=== PATIENT | female | born 1960 | race Caucasian/White ===

== ENCOUNTER → 2017-12-11 | Outpatient (CLI) | payer OTHER ==
[~2017-12-11] MED LIST: ALLO100 PO; ALLO300 PO; ATEN25; ATEN50 PO; COLCRYS; ESOM20; ESTMED1.5T PO; FISH1000 PO; FURO40 PO; HYDACE5 PO; HYDACE5325 PO; HYDCHL12.5; HYDCHL25 PO; INDO50 PO; Janumet 50-1,01 EACH; LEVSOD100 PO; LEVSOD125; LEVSOD175 PO; LIOT25; LIOT25 PO; LISI20; LISI20 PO; METF500; METF500 PO; NAPR500 PO; NAPR500ERA; POTA10T PO; POTCHL10ER PO; PRAV20 PO; Zithromax250 MG PO; [UNRECOGNIZED DRUG - OTHER]
[2017-12-11 18:17] LABS: BASOPHILS ABSOLUTE AUTO 0.04 K/mm3 (0.00-0.23); BASOPHILS PERCENT AUTO 1 % (0-2); EOSINOPHILS PERCENT AUTO 8 % (0-6); Hematocrit 34.6 % (33.0-51.0); Hemoglobin 11.6 g/dL (11.5-16.0); IMMATURE GRAN ABSOLUTE AUTO 0.02 K/mm3 (0.00-0.10); IMMATURE GRAN PERCENT AUTO 0 % (0-1); LYMPHOCYTES PERCENT AUTO 23 % (21-46); MONOCYTES PERCENT AUTO 6 % (4-13); Mean Corpuscular HGB Conc 33.5 g/dL (31.5-36.5); Mean Corpuscular Volume 96 fL (80-100); Mean Platelet Volume 9.9 fL (9.1-12.4); NEUTROPHILS ABSOLUTE AUTO 3.25 K/mm3 (1.96-9.15); NEUTROPHILS PERCENT AUTO 62 % (41-73); Platelet Count 258 K/mm3 (150-400); RDW Coefficient Variation 13.6 % (11.7-14.2); RDW Standard Deviation 47.8 fL (35.1-46.3); Red Blood Cell Count 3.62 M/mm3 (3.80-5.20); White Blood Cell Count 5.21 K/mm3 (4.00-11.30)
[2017-12-11 18:24] LABS: Bun/Creatinine Ratio 19.5 (12.0-20.0); Calcium, Blood 9.3 mg/dL (8.5-10.1); Creatinine, Blood 1.23 mg/dL (0.40-1.00); Potassium, Blood 5.1 mmol/L (3.5-5.5)
== END ==
LOC: LAB EV 18:11 → LAB SHORT 18:11
PROVIDERS: Physician Assistant Surgical
DX: R73.9 Hyperglycemia, unspecified (principal)
CPT/HCPCS: 80048; 85025

== ENCOUNTER 2018-01-03 18:13 | Emergency (ER) | payer OTHER ==
[~2018-01-03] VITALS: Ht 152.4 cm; Wt 115.2 kg
[2018-01-03 21:18] LABS: Bun/Creatinine Ratio 44.6 (12.0-20.0); Calcium, Blood 9.6 mg/dL (8.5-10.1); Creatinine, Blood 1.01 mg/dL (0.40-1.00)
[2018-01-03 22:55] LABS: Calcium, Ionized (POC) 1.24 mmol/L (1.10-1.46); Chloride (POC) 115 mmol/L (98-108); Creatinine (POC) 0.9 mg/dL (0.6-1.0); Glucose (ISTAT POC) 133 mg/dL (70-99); Hemoglobin (POC) 9.5 g/dL (12.0-16.0); Potassium (POC) 5.1 mmol/L (3.5-5.5); Sodium (POC) 140 mmol/L (135-148); Total CO2 (POC) 16 mmol/L (21-32)
== END 2018-01-03 23:21 | disposition home or self-care (01) ==
LOC: ER 18:13
PROVIDERS: Emergency Medicine; Physician Assistant
DX: E87.5 Hyperkalemia (principal); N17.9 Acute kidney failure, unspecified; E86.0 Dehydration; K52.9 Noninfective gastroenteritis and colitis, unspecified; Z79.899 Other long term (current) drug therapy; I10 Essential (primary) hypertension; E11.9 Type 2 diabetes mellitus without complications; E78.00 Pure hypercholesterolemia, unspecified; E03.9 Hypothyroidism, unspecified; Z87.891 Personal history of nicotine dependence
CPT/HCPCS: 36415; 80047; 80048; 85014; 93005; 93010; J7030

== ENCOUNTER → 2018-01-03 | Outpatient (CLI) | payer OTHER ==
[2018-01-03 17:09] LABS: BASOPHILS ABSOLUTE AUTO 0.04 K/mm3 (0.00-0.23); BASOPHILS PERCENT AUTO 1 % (0-2); EOSINOPHILS ABSOLUTE AUTO 0.32 K/mm3 (0.00-0.68); EOSINOPHILS PERCENT AUTO 6 % (0-6); Hematocrit 34.2 % (33.0-51.0); Hemoglobin 11.3 g/dL (11.5-16.0); IMMATURE GRAN ABSOLUTE AUTO 0.02 K/mm3 (0.00-0.10); IMMATURE GRAN PERCENT AUTO 0 % (0-1); LYMPHOCYTES ABSOLUTE AUTO 1.33 K/mm3 (0.84-5.20); LYMPHOCYTES PERCENT AUTO 23 % (21-46); MONOCYTES ABSOLUTE AUTO 0.43 K/mm3 (0.16-1.47); MONOCYTES PERCENT AUTO 7 % (4-13); Mean Corpuscular HGB 32.1 pg (26.0-34.0); Mean Corpuscular Volume 97 fL (80-100); Mean Platelet Volume 9.6 fL (9.1-12.4); NEUTROPHILS ABSOLUTE AUTO 3.73 K/mm3 (1.96-9.15); NEUTROPHILS PERCENT AUTO 64 % (41-73); Platelet Count 233 K/mm3 (150-400); RDW Standard Deviation 48.9 fL (35.1-46.3); Red Blood Cell Count 3.52 M/mm3 (3.80-5.20); White Blood Cell Count 5.87 K/mm3 (4.00-11.30)
[2018-01-03 17:31] LABS: Albumin, Blood 3.7 g/dL (3.4-5.0); Albumin/Globulin Ratio 0.8 (0.8-1.8); Bilirubin, Total 0.3 mg/dL (0.1-1.0); Bun/Creatinine Ratio 37.8 (12.0-20.0); Calcium, Blood 9.8 mg/dL (8.5-10.1); Creatinine, Blood 1.35 mg/dL (0.40-1.00); Globulin, Blood 4.5 g/dL (2.2-4.0); Thyroid Stimulating Hormone 1.981 uIU/mL (0.360-4.800); Total Protein, Blood 8.2 g/dL (6.4-8.2)
[2018-01-03 17:32] LABS: Potassium, Blood 6.1 mmol/L (3.5-5.5)
== END ==
LOC: LAB EV 17:05 → LAB SHORT 17:05
PROVIDERS: Physician Assistant
DX: R19.7 Diarrhea, unspecified (principal)
CPT/HCPCS: 80053; 84443; 85025

== ENCOUNTER → 2018-02-08 | Outpatient (CLI) | payer OTHER ==
[2018-02-08 17:46] LABS: Alanine Aminotransfer (ALT/SGP 44 U/L (12-78); Albumin, Blood 3.7 g/dL (3.4-5.0); Albumin/Globulin Ratio 0.8 (0.8-1.8); Alk Phos 113 U/L (50-136); Anion Gap 12 mmol/L (6-16); Aspartate Aminotrans (AST/SGOT 29 U/L (12-37); Bilirubin, Total 0.2 mg/dL (0.1-1.0); Blood Urea Nitrogen 24 mg/dL (8-24); Bun/Creatinine Ratio 28.2 (12.0-20.0); CHOL/HDL RATIO 5.4; CO2, Blood 20 mmol/L (21-32); Calcium, Blood 9.8 mg/dL (8.5-10.1); Chloride, Blood 106 mmol/L (98-108); Cholesterol 242 mg/dL (50-200); Creatinine, Blood 0.85 mg/dL (0.40-1.00); Globulin, Blood 4.4 g/dL (2.2-4.0); Glomerular Filtration Rate >60 (60-); Glucose, Blood 244 mg/dL (70-99); HDL Cholesterol 45 mg/dL (>39); LDL/HDL RATIO Unable to Calculate; Low Density Lipoprotein Chol Unable to Calculate mg/dL (0-110); Potassium, Blood 5.5 mmol/L (3.5-5.5); Sodium, Blood 138 mmol/L (136-145); Total Protein, Blood 8.1 g/dL (6.4-8.2); Triglycerides 429 mg/dL (30-160); Very Low Density Lipoprot Chol Unable to Calculate mg/dL (6-32)
== END ==
LOC: OLS 15:27 → LAB SHORT 15:27
PROVIDERS: Physician Assistant
DX: E11.65 Type 2 diabetes mellitus with hyperglycemia (principal); E78.5 Hyperlipidemia, unspecified
CPT/HCPCS: 36415; 80053; 80061; 82043; 83036

== ENCOUNTER → 2019-09-04 | Outpatient (CLI) | payer OTHER | END | disposition home or self-care (01) | LOC: LAB EV 17:20 → LAB SHORT 17:20 | DX: N39.0 Urinary tract infection, site not specified (principal) | CPT/HCPCS: 87077; 87086; 87186 ==

== ENCOUNTER 2019-11-10 18:16 | Inpatient (IN) | payer OTHER ==
[~2019-11-10] VITALS: Ht 152.4 cm; Wt 104.3 kg
[~2019-11-10 18:16] MED LIST changes: -ACET325 PO; -ADMELOG SO100 UNIT/1 SC; -AMOCLA875 PO; -BASAGLAR K100 UNIT/2 SC; -Crestor20 MG PO; -DOCU100 PO; -Fish Oil 10001000 MG PO; -Florastor250 MG PO; -HYDR1TAB94 PO; -LISI20 PO; -Metformin HCl1000 MG PO; -ONDA4ODT MM; -PANT20 PO; -POLYETHYLENE G500 G1 PO; -SYNTHROID175 MCG PO
[2019-11-10] MEDS ORDERED: ADMELOG SO100 UNIT/1 SC (21:20)
[2019-11-10] MEDS ORDERED: BASAGLAR K100 UNIT/2 SC (21:21)
[2019-11-10] MEDS ORDERED: LISI20 PO (21:22)
[2019-11-10] MEDS ORDERED: SYNTHROID175 MCG PO (21:22)
[2019-11-10] MEDS ORDERED: Metformin HCl1000 MG PO (21:23)
[2019-11-10] MEDS ORDERED: Crestor20 MG PO (21:24)
[2019-11-10] MEDS ORDERED: Fish Oil 10001000 MG PO (22:30)
--- NOTE | 2019-11-11 02:01 | NUR ---
0030 PT ADMITTED TO ROOM 311 PER CART FROM ER; PT LAST ATE ON 11/09/19 AND VOICING CONCERNS SHE IS HUNGRY AND THIS NURSE ADVISED HER THAT SHE IS NPO 11/11/19 FOR POSSIBLE SURGERY IN AM ([place], DRYWALL TAPER) CLARIFIED THAT PATIENT IS ON SURGICAL SCHEDULE.
--- NOTE | 2019-11-11 04:34 | NUR ---
SHIFT SUMMARY: 59 Y/O OBESE FEMALE RESTED COMFORTABLY ALL SHIFT; NPO FOR POSSIBLE SURGERY THIS AM; DENIES NEED FOR PAIN MEDS; NAUSEA X 1 WITH ZOFRAN 4MG IVP GIVEN WITH RELIEF FELT; PT LAST ATE OR DRANK ON 11/09/19; BED LOW POSITION WITH CALL LIGHT AT SIDE.
[2019-11-11 05:18] LABS: BASOPHILS ABSOLUTE AUTO 0.03 K/mm3 (0.00-0.23); BASOPHILS PERCENT AUTO 0 % (0-2); EOSINOPHILS ABSOLUTE AUTO 0.03 K/mm3 (0.00-0.68); EOSINOPHILS PERCENT AUTO 0 % (0-6); Hematocrit 32.6 % (33.0-51.0); Hemoglobin 10.8 g/dL (11.5-16.0); IMMATURE GRAN ABSOLUTE AUTO 0.06 K/mm3 (0.00-0.10); IMMATURE GRAN PERCENT AUTO 1 % (0-1); LYMPHOCYTES ABSOLUTE AUTO 1.29 K/mm3 (0.84-5.20); LYMPHOCYTES PERCENT AUTO 12 % (21-46); MONOCYTES ABSOLUTE AUTO 0.79 K/mm3 (0.16-1.47); MONOCYTES PERCENT AUTO 7 % (4-13); Mean Corpuscular HGB 30.7 pg (26.0-34.0); Mean Corpuscular HGB Conc 33.1 g/dL (31.5-36.5); Mean Corpuscular Volume 93 fL (80-100); Mean Platelet Volume 10.5 fL (9.1-12.4); NEUTROPHILS ABSOLUTE AUTO 8.62 K/mm3 (1.96-9.15); NEUTROPHILS PERCENT AUTO 80 % (41-73); Platelet Count 223 K/mm3 (150-400); RDW Coefficient Variation 12.3 % (11.7-14.2); RDW Standard Deviation 41.6 fL (35.1-46.3); Red Blood Cell Count 3.52 M/mm3 (3.80-5.20); White Blood Cell Count 10.82 K/mm3 (4.00-11.30)
[2019-11-11 05:29] LABS: Anion Gap 10 mmol/L (6-16); Blood Urea Nitrogen 15 mg/dL (8-24); CO2, Blood 24 mmol/L (21-32); Calcium, Blood 9.1 mg/dL (8.5-10.1); Chloride, Blood 102 mmol/L (98-108); Creatinine, Blood 0.83 mg/dL (0.40-1.00); Glomerular Filtration Rate >60 (60-); Glucose, Blood 220 mg/dL (70-99); Potassium, Blood 4.1 mmol/L (3.5-5.5); Sodium, Blood 136 mmol/L (136-145)
--- NOTE | 2019-11-11 08:28 | NUR ---
PATIENT TO OR FOR APPENDECTOMY. BELONGINGS TAKEN TO ROOM 226.
--- NOTE | 2019-11-11 09:27 | NUR ---
"DAY SURGERY RN | TO OR BOTH DOCTORS AND QUALITY ASSURANCE MONITOR BODY HAVE SEEN PATIENT. REPORT TO AUGIE MORALES. TO BATHROOM PRIOR TO SURGERY."
--- NOTE | 2019-11-11 09:45 | NUR ---
11/11/19 0945 Sindhu Macdonald PT ON SCHEDULED ANTIBIOTICS
--- NOTE | 2019-11-11 13:25 | NUR ---
PATIENT ARRIVED TO ROOM VIA GURNEY FROM PACU. AWAKE. SLOWLY SELF TRANSFERS TO BED. STATES SOME NAUSEA IN PACU, NOW RESOLVED. STATES PAIN IS 'OK RIGHT NOW.' THREE 2X2 DRESSINGS TO ABD, D&I. MARCUS DRAIN WITH SCANT SS DRAINAGE AND SCANT SS DRAINAGE ON DRESSING. VSS. LS CLEAR. SAT 97% ON 2L O2 NC. RESP E/U. HRR. TELE PLACED. SR @ 67 PER MARINA IN PCU. HX OF BACK PAIN, K PAD ADMIN. PAS IN PLACE. CALL LIGHT IN REACH. CONT TO MONITOR.
--- NOTE | 2019-11-11 19:10 | NUR ---
PATIENT NOW SLEEPING. VSS. UP TO BR X 1 SINCE ADMIT TO ROOM, VOIDED. TOLERATED PO. IVF INFUSING PER ORDER. REPORT TO MARY MORALES.
[2019-11-12 04:52] LABS: BASOPHILS ABSOLUTE AUTO 0.03 K/mm3 (0.00-0.23); BASOPHILS PERCENT AUTO 0 % (0-2); EOSINOPHILS ABSOLUTE AUTO 0.01 K/mm3 (0.00-0.68); EOSINOPHILS PERCENT AUTO 0 % (0-6); Hematocrit 33.3 % (33.0-51.0); Hemoglobin 10.5 g/dL (11.5-16.0); IMMATURE GRAN ABSOLUTE AUTO 0.02 K/mm3 (0.00-0.10); IMMATURE GRAN PERCENT AUTO 0 % (0-1); LYMPHOCYTES ABSOLUTE AUTO 1.33 K/mm3 (0.84-5.20); LYMPHOCYTES PERCENT AUTO 16 % (21-46); MONOCYTES ABSOLUTE AUTO 0.65 K/mm3 (0.16-1.47); MONOCYTES PERCENT AUTO 8 % (4-13); Mean Corpuscular HGB 30.8 pg (26.0-34.0); Mean Corpuscular HGB Conc 31.5 g/dL (31.5-36.5); Mean Corpuscular Volume 98 fL (80-100); Mean Platelet Volume 10.3 fL (9.1-12.4); NEUTROPHILS ABSOLUTE AUTO 6.42 K/mm3 (1.96-9.15); NEUTROPHILS PERCENT AUTO 76 % (41-73); Platelet Count 206 K/mm3 (150-400); RDW Coefficient Variation 12.4 % (11.7-14.2); RDW Standard Deviation 44.4 fL (35.1-46.3); Red Blood Cell Count 3.41 M/mm3 (3.80-5.20); White Blood Cell Count 8.46 K/mm3 (4.00-11.30)
[2019-11-12 05:07] LABS: Bun/Creatinine Ratio 18.8 (12.0-20.0); Calcium, Blood 8.6 mg/dL (8.5-10.1); Creatinine, Blood 1.12 mg/dL (0.40-1.00); Potassium, Blood 4.8 mmol/L (3.5-5.5)
--- NOTE | 2019-11-12 06:46 | NUR ---
SUMMARY PT WITH SATS 89-90% R/A WHILE ASLEEP ON BACK.HOWEVER, SATS MID 90'S WHILE RESTING ON SIDES OR OOB/SITTING ON EDGE OF BED. ONLY PLACED O2 2L FOR LESS THAN 30 MIN UNTIL REPOSITIONED AND OOB.DENIES ANY SOB TONIGHT. AMBULATING FOR VOIDING WITHOUT DIFF. CONTINUES WITH MODERATE OUTPUT PER MARCUS,BUT VBA PROGRAMMER IN COLOR TO SERO-SANG WITHOUT ANY CLOTS.PT TOLERATING PO FLUIDS WITHOUT ANY C/O NAUSEA. NOT REQUIRING ANY PAIN MEDS. ANXIOUS TO GO HOME.
--- NOTE | 2019-11-12 19:27 | NUR ---
OOB TO RECLINER CHAIR MOST OF THE DAY, AMBULATED DOWN THE HALLS AND IN ROOM TODAY, REPORTS PASSING FLATUS, TOLERATING REGULAR DIET WELL, MARCUS DRAINING LIGHT SEROUSANGUINOUS DRAINAGE, DSG C/D/I, NO ACUTE CHANGES THIS SHIFT.
[2019-11-13 02:04] LABS: BASOPHILS ABSOLUTE AUTO 0.03 K/mm3 (0.00-0.23); BASOPHILS PERCENT AUTO 0 % (0-2); EOSINOPHILS ABSOLUTE AUTO 0.14 K/mm3 (0.00-0.68); EOSINOPHILS PERCENT AUTO 2 % (0-6); Hematocrit 31.3 % (33.0-51.0); Hemoglobin 10.3 g/dL (11.5-16.0); IMMATURE GRAN ABSOLUTE AUTO 0.08 K/mm3 (0.00-0.10); IMMATURE GRAN PERCENT AUTO 1 % (0-1); LYMPHOCYTES ABSOLUTE AUTO 1.29 K/mm3 (0.84-5.20); LYMPHOCYTES PERCENT AUTO 14 % (21-46); MONOCYTES ABSOLUTE AUTO 0.85 K/mm3 (0.16-1.47); MONOCYTES PERCENT AUTO 9 % (4-13); Mean Corpuscular HGB 31.2 pg (26.0-34.0); Mean Corpuscular HGB Conc 32.9 g/dL (31.5-36.5); Mean Corpuscular Volume 95 fL (80-100); Mean Platelet Volume 9.7 fL (9.1-12.4); NEUTROPHILS ABSOLUTE AUTO 6.89 K/mm3 (1.96-9.15); NEUTROPHILS PERCENT AUTO 74 % (41-73); Platelet Count 241 K/mm3 (150-400); RDW Coefficient Variation 12.3 % (11.7-14.2); RDW Standard Deviation 43.3 fL (35.1-46.3); White Blood Cell Count 9.28 K/mm3 (4.00-11.30)
[2019-11-13 02:19] LABS: Bun/Creatinine Ratio 12.9 (12.0-20.0); Calcium, Blood 7.9 mg/dL (8.5-10.1); Creatinine, Blood 2.17 mg/dL (0.40-1.00); Potassium, Blood 4.2 mmol/L (3.5-5.5)
--- NOTE | 2019-11-13 02:38 | NUR ---
PT WITH INCREASED ABD DISTENSION. REPORTS PASSING FLATUS. VOID ONLY 200 ML SO FAR THIS SHIFT. I CALLED LAB TO MOVE AM DRAW UP TO THIS TIME PRIOR TO CALLING DOCTOR.BLADDER SCAN 21 PER CUSTOM FURRIER. I CALLED DR SHAW AND ADVISED OF ABOVE INCLUDING LABS CREATININE 2.17,GFR 25,NA 131. DR SHAW REVIEWING CHART AND WILL BE IN CONTACT FURTHER.NOTIFIED NURSING TOOL MAINTENANCE WORKER Felicia KATZ.
[2019-11-13 04:12] LABS: Source, Urine Clean Catch
[2019-11-13 04:14] LABS: Bilirubin, Urine Neg (Neg); Blood, Urine Neg (Neg); Glucose Qualitative, Urine Neg (Neg); Ketones, Urine Neg (Neg); Leukocyte Esterase, Urine 1+ (Neg); Nitrite, Urine Neg (Neg); Protein, Urine 2+ (Neg); Specific Gravity, Urine 1.015 (1.003-1.022); Urobilinogen, Urine NORM (Normal)
[2019-11-13 04:23] LABS: Appearance, Urine Hazy (Clear); Color, Urine Yellow (P-Yellow)
[2019-11-13 04:24] LABS: Amorphous Mod (0-Heavy); Bacteria Many /hpf; Red Blood Cells, Urine Not Seen /hpf (0-2); Squamous Epithelial Cells Mod /hpf (Few)
--- NOTE | 2019-11-13 06:19 | NUR ---
SUMMARY PT IV DIFF LOCATION AND CONTINUES TO ALARM OCCLUSION.APPEARS UP AGAINST VALVE, BUT WITH TRACTION, ONLY RUNS FEW MIN THEN ALARMS AGAIN. PT WITH MINIMAL OPTIONS FOR SITES. UNIT STAFF ATTEMPTED WITH ULTRASOUND AND UNABLE TO OBTAIN SITE. THEY RECOMMEND POWER GLIDE WHEN STAFF ABLE TO PLACE.
--- NOTE | 2019-11-13 06:29 | NUR ---
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 I PLACED SOCIAL SERVICE CX.
--- NOTE | 2019-11-13 17:57 | NUR ---
SHIFT SUMMARY: PATIENT HAS BEEN MAINLY IN HER RECLINER TODAY. SHE HAS AMBULATED DOWN THE HALLS TWICE TODAY WITH A HEARING IMPAIRED TEACHER FOLLOWING HER. SHE REPORTS PASSING FLATUS AND HAS BEEN USING THE TOILET TO TRY AND HAVE A BM ALL DAY. MARCUS DRAIN WAS TAKEN OUT TODAY BY DR. CASTLE. THE BANAGE AND GAUZE ARE D/C/I. SHE HAS EATEN ADEQUATELY THROUGHOUT THE SHIFT. SHE IS ABLE TO REPOSITION HERSELF IN THE RECLINER AND BED. SHE ALSO HAS BEEN NAPPING THROUGHOUT THE DAY TOO. WILL CONTINUE TO MONITOR PATIENT UNTIL THE NEXT SHIFT RN IS HERE TO BE GIVEN REPORT.
--- NOTE | 2019-11-13 18:45 | NUR ---
CORE CUTTER AND REAMER DOCUMENTATION HAS BEEN REVIEWED. THIS RN AGREES WITH DOCUMENTATION BY ANA VAUGHN STUDENT NURSE.
--- NOTE | 2019-11-14 04:37 | NUR ---
SHIFT SUMMARY AA0X4, VSS. POD 3 LAP APPY. PT REPORTS PAIN MUCH BETTER TODAY. MEDICATED PER EMAR. UP IN CHAIR. PT AMBULATING TO RESTROOM WITH MINIMAL ASSIST. CONT OF BLADDER. PT REPORTING SOME GAS PAIN, DENIES PASSING GAS. IV FLUIDS INFUSING T/O SHIFT. LAP SITES CDI. MARCUS DRAIN SITE CDI.
[2019-11-14 06:42] LABS: Bun/Creatinine Ratio 13.1 (12.0-20.0); Calcium, Blood 7.4 mg/dL (8.5-10.1); Creatinine, Blood 2.36 mg/dL (0.40-1.00); Potassium, Blood 4.3 mmol/L (3.5-5.5)
[2019-11-14] MEDS ORDERED: HYDR1TAB94 PO (08:53)
--- NOTE | 2019-11-14 09:28 | NUR ---
DR CRANE HERE TO SEE PT.
[2019-11-14] MEDS ORDERED: DOCU100 PO (13:59)
[2019-11-14] MEDS ORDERED: POLYETHYLENE G500 G1 PO (13:59)
[2019-11-14] MEDS ORDERED: AMOCLA875 PO (14:06)
[2019-11-14] MEDS ORDERED: ACET325 PO (14:27)
[2019-11-14] MEDS ORDERED: ONDA4ODT MM (14:31)
[2019-11-14] MEDS ORDERED: PANT20 PO (14:32)
[2019-11-14] MEDS ORDERED: Florastor250 MG PO (14:33)
--- NOTE | 2019-11-14 15:38 | NUR ---
DISCHARGE: PT EATING AND DRINKING, VOIDING, PASSING GAS. PT UP WITH STEADY GAIT TODAY. PT REPORTS UNDERSTANDING OF DISCHARGE INSTRUCTIONS. PT MEDICATIONS CALLED TO [facility] PER PT REQ. PT REPORTS HAVING REGULAR MEDICATIONS AT HOME. PT REPORTS WILL HAVE LABWORK COMPLETED TOMMORROW AND F/U WITH PCP. PT GETTING RIDE FROM FRIENDS THAT SHE REPORTS WILL BE ABLE TO ASSIST HER IF NEEDED WHILE AT HOME.
== END 2019-11-14 15:30 | disposition home or self-care (01) | DRG 339 ==
LOC: CT 18:16 → ER 18:16 → EDSTATUS 20:10 → MEDS 23:35 → SURS 23:35 → MEDS 11-11 00:32 → SURS 11-11 13:21
PROVIDERS: Family Medicine; Internal Medicine; Surgery; ADMIT Internal Medicine
PROC: 0DBH8ZX Excision of Cecum, Via Natural or Artificial Opening Endoscopic, Diagnostic (ICD-10-PCS; 2019-11-11)
PROC: 0DTJ4ZZ Resection of Appendix, Percutaneous Endoscopic Approach (ICD-10-PCS; principal; 2019-11-11 09:00)
DX: K35.33 Acute appendicitis with perforation, localized peritonitis, and gangrene, with abscess (principal); Z68.41 Body mass index [BMI] 40.0-44.9, adult; N17.9 Acute kidney failure, unspecified; E66.01 Morbid (severe) obesity due to excess calories; E03.9 Hypothyroidism, unspecified; E78.5 Hyperlipidemia, unspecified; I12.9 Hypertensive chronic kidney disease with stage 1 through stage 4 chronic kidney disease, or unspecified chronic kidney disease; E11.22 Type 2 diabetes mellitus with diabetic chronic kidney disease; N18.3 Chronic kidney disease, stage 3 (moderate); Z85.42 Personal history of malignant neoplasm of other parts of uterus; Z87.891 Personal history of nicotine dependence; T50.8X5A Adverse effect of diagnostic agents, initial encounter; Z79.4 Long term (current) use of insulin
CPT/HCPCS: 36415; 72193; 74018; 80048; 81001; 82947; 83605; 85025; 86850; 86900; 86901; 87086; 87106; 88307; 93005; 93010; 96361; 96365; 96375; 99285-25; A9270-GY; C9113; J0295; J1100; J1644; J1885; J2250; J2405; J2704; J3010; J7030; J7120; Q9967

== ENCOUNTER → 2019-11-10 | Outpatient (CLI) | payer OTHER ==
[~2019-11-10] MED LIST changes: +ACET325 PO; +ADMELOG SO100 UNIT/1 SC; +AMOCLA875 PO; +BASAGLAR K100 UNIT/2 SC; +Crestor20 MG PO; +DOCU100 PO; +Fish Oil 10001000 MG PO; +Florastor250 MG PO; +HYDR1TAB94 PO; -Janumet 50-1,01 EACH; -LEVSOD100 PO; +Metformin HCl1000 MG PO; +ONDA4ODT MM; +PANT20 PO; +POLYETHYLENE G500 G1 PO; +SYNTHROID175 MCG PO
[2019-11-10 18:02] LABS: BASOPHILS ABSOLUTE AUTO 0.04 K/mm3 (0.00-0.23); BASOPHILS PERCENT AUTO 0 % (0-2); EOSINOPHILS ABSOLUTE AUTO 0.06 K/mm3 (0.00-0.68); EOSINOPHILS PERCENT AUTO 1 % (0-6); Hematocrit 34.2 % (33.0-51.0); Hemoglobin 11.5 g/dL (11.5-16.0); IMMATURE GRAN ABSOLUTE AUTO 0.04 K/mm3 (0.00-0.10); IMMATURE GRAN PERCENT AUTO 0 % (0-1); LYMPHOCYTES ABSOLUTE AUTO 1.02 K/mm3 (0.84-5.20); LYMPHOCYTES PERCENT AUTO 10 % (21-46); MONOCYTES ABSOLUTE AUTO 0.55 K/mm3 (0.16-1.47); MONOCYTES PERCENT AUTO 5 % (4-13); Mean Corpuscular HGB 30.7 pg (26.0-34.0); Mean Corpuscular HGB Conc 33.6 g/dL (31.5-36.5); Mean Corpuscular Volume 91 fL (80-100); Mean Platelet Volume 9.9 fL (9.1-12.4); NEUTROPHILS ABSOLUTE AUTO 8.83 K/mm3 (1.96-9.15); NEUTROPHILS PERCENT AUTO 84 % (41-73); Platelet Count 230 K/mm3 (150-400); RDW Coefficient Variation 12.4 % (11.7-14.2); RDW Standard Deviation 40.9 fL (35.1-46.3); Red Blood Cell Count 3.74 M/mm3 (3.80-5.20); White Blood Cell Count 10.54 K/mm3 (4.00-11.30)
[2019-11-10 18:18] LABS: Alanine Aminotransfer (ALT/SGP 29 U/L (12-78); Albumin, Blood 3.1 g/dL (3.4-5.0); Albumin/Globulin Ratio 0.6 (0.8-1.8); Alk Phos 106 U/L (40-126); Anion Gap 13 mmol/L (6-16); Aspartate Aminotrans (AST/SGOT 15 U/L (12-37); Bilirubin, Total 0.5 mg/dL (0.1-1.0); Blood Urea Nitrogen 15 mg/dL (8-24); CO2, Blood 23 mmol/L (21-32); Calcium, Blood 9.4 mg/dL (8.5-10.1); Chloride, Blood 99 mmol/L (98-108); Creatinine, Blood 0.88 mg/dL (0.40-1.00); Glomerular Filtration Rate >60 (60-); Glucose, Blood 250 mg/dL (70-99); Potassium, Blood 4.5 mmol/L (3.5-5.5); Sodium, Blood 135 mmol/L (136-145); Total Protein, Blood 8.1 g/dL (6.4-8.2)
== END | disposition home or self-care (01) ==
LOC: LAB SHORT 17:57 → LAB EV 17:57
PROVIDERS: Physician Assistant Surgical
DX: R10.31 Right lower quadrant pain (principal)
CPT/HCPCS: 80053; 85025

== ENCOUNTER → 2020-07-04 | Outpatient (CLI) | payer OTHER ==
[~2020-07-04] MED LIST changes: +ACET325 PO; +ADMELOG SO100 UNIT/1 SC; +AMOCLA875 PO; +BASAGLAR K100 UNIT/2 SC; +Crestor20 MG PO; +DOCU100 PO; +Fish Oil 10001000 MG PO; +Florastor250 MG PO; +HYDR1TAB94 PO; +LISI20 PO; +Metformin HCl1000 MG PO; +ONDA4ODT MM; +PANT20 PO; +POLYETHYLENE G500 G1 PO; +SYNTHROID175 MCG PO; +VITAMIN D21250 MC1 PO
== END | disposition home or self-care (01) ==
LOC: PLD 14:16 → LAB SHORT 14:16
DX: B35.1 Tinea unguium (principal); L60.2 Onychogryphosis
CPT/HCPCS: 88305; 88312